=== PATIENT | female | born 1985 | race Caucasian/White ===

== ENCOUNTER 2018-04-29 06:08 | Inpatient (IN) | payer MEDICAID ==
[2018-04-29] VITALS (33 sets, daily range): BP systolic 126–189; BP diastolic 72–103; Ht 157.5 cm; Wt 65.8 kg
[~2018-04-29] VITALS: Ht 157.5 cm; Wt 65.8 kg
--- NOTE | ~2018-04-29 | HP ---
PATIENT: VANIA ORTIZ I MEDICAL RECORD: [id number] ACCOUNT: [id number] LOCATION:[id number] : 85 ADMISSION DATE: 04/29/18 HISTORY AND PHYSICAL EXAMINATION DATE OF ADMISSION: 04/29/2018 HISTORY OF PRESENT ILLNESS: The patient was admitted via the Emergency Room with chief complaint of having a precipitous vaginal delivery of a likely term and bleeding while at a [employer]. PAST MEDICAL HISTORY: Significant for; 1. Polysubstance abuse. 2. Depression. 3. Recurrent UTIs. 4. Poor dentition. PAST SURGICAL HISTORY: The patient denies. FAMILY HISTORY: The patient reports no significant family history. SOCIAL HISTORY: The patient reports a social history significant for user of tobacco, methamphetamine, marijuana, and alcohol. PHYSICAL EXAMINATION: VITAL SIGNS: Stable. The patient was afebrile. LUNGS: Clear to auscultation. CARDIOVASCULAR: Regular rate and rhythm. PELVIC: Uterus was appropriately sized for the immediate state. EXTREMITIES: Lower extremities were free of Homans sign or erythema. VAGINAL EXAMINATION: Minimal bleeding was noted on initial examination with no significant tears. ASSESSMENT AND PLAN: 1. Precipitous delivery outside of the hospital. 2. Polysubstance abuse. 3. Depression. PLAN: The patient was admitted, at that time started on pain medicine and IV fluids. The patient was noted an admit hemoglobin to be 6.9. Orders were given to transfuse 2-3 units of packed red blood cells. financial services education consultant were contacted due to the patient's polysubstance abuse. Attempts were made to obtain all of the patient's records. The patient had been diagnosed with chlamydia during the and was treated with Zithromax. TRANSINT:[id number] Voice Confirmation ID: [id number] DOCUMENT ID: [id number] HISTORY AND PHYSICAL [id number] ALEXANDRU ORTIZBEJASWINDER Delgado KRISSY DOMINGUEZ MD CC: [id number] DICTATION DATE: 06/23/18737 PARADICHLOROBENZENE TENDER: 06/23/18 0941 DIS IN 04/30/18 [place] [id number]
--- NOTE | ~2018-04-29 | DS ---
PATIENT:VANIA ORTIZ I :85 MEDICAL RECORD: [id number] DISCHARGE SUMMARY ADMISSION DATE: 04/29/18 DISCHARGE DATE: 04/30/18 HISTORY: The patient arrived at the Emergency Room via ambulance after having a precipitous delivery while at a green party. The patient reported some bleeding and that the placenta had delivered en route without complication. The patient was noted to have an extensive history of polysubstance abuse. The patient had a past medical history significant for: 1. Polysubstance abuse. 2. Depression. 3. Recurrent UTIs. 4. Poor dentition. The patient reported no previous surgeries. The patient reported being a smoker, user of methamphetamine and marijuana. PHYSICAL EXAMINATION: GENERAL: Upon initial examination, the patient was lying in bed comfortably upon admit to labor and delivery. The patient at that time with minimal lochia. VITAL SIGNS: Vital signs at that time were stable. LUNGS: Clear to auscultation. CARDIOVASCULAR: Regular rate and rhythm. PELVIC: Uterus was infraumbilical. EXTREMITIES: Lower extremities were free of Homans sign. ASSESSMENT AND PLAN: At that time; 1. Precipitous delivery outside of hospital. 2. Polysubstance abuse. 3. Depression. HOSPITAL COURSE: The patient was admitted at that time and started on pain medicine and IV fluids. Admit hemoglobin was found to be 6.9. The patient was started on at that time transfusion of packed red blood cells. Risk and benefit of blood transfusion was explained to the patient. The patient voiced understanding and consent. The patient had been diagnosed with chlamydia during the . The patient was retreated with Zithromax. Overnight on hospital day #1, the patient's hemoglobin only kassie a slight amount, although the patient had no signs of any active bleeding, no evidence of intra-abdominal bleeding. A CT scan was obtained to evaluate for uterine rupture or intra-abdominal bleeding. CT scan was found to be negative. No evidence of any intra-abdominal bleeding. My suspicion at that time as the patient just underestimated blood loss at the time of delivery and the patient was given another unit of packed red cells. This time met with appropriate rise in her hemoglobin. During the stay, the patient continued to leave the unit sometimes for more than an hour at a time and returning with elevated blood pressures. It was suspected at that time that she was using methamphetamine and coming back to the room. It was suspected initially the patient had -induced hypertension and was started on labetalol 200 mg t.i.d. Despite multiple attempts of counseling the patient and informing her the importance of staying on the unit, at one point the patient left the unit and was gone for over 2 hours, at which point, the patient was discharged AMA. The patient returned later in the afternoon and signed AMA papers. The patient was given discharge instructions and advised to follow up as an outpatient. DISCHARGE SUMMARY REPORT [id number] VANIA ORTIZ I TRANSINT:[id number] Voice Confirmation ID: [id number] DOCUMENT ID: [id number] KRISSY DOMINGUEZ MD at 1304 CC: [id number] DICTATION DATE: 06/16/1843 COMMERCIAL ELECTRICIAN: 06/16/18 0803 DIS IN 04/30/18 [place] [id number] [place] [address]
[~2018-04-29 06:08] MED LIST: FERROUS; IBUPROFEN600 MG PO; PERCOCET 5-3251 TAB PO; PROCARDIA XL PO
[2018-04-29 07:20] LABS: RBC 2.94 10x6/uL (4.00-5.40); WBC 21.8 10x3/uL (4.8-10.8)
[2018-04-29 07:21] LABS: HEMATOCRIT 21.4 % (36.0-48.0); HEMOGLOBIN 6.4 g/dL (12-16); MCH 21.8 pg (26.0-34.0); MCHC 29.9 g/dL (31.0-37.0); MCV 72.8 fL (80.0-100.0); MEAN PLATELET VOLUME 10.5 fL (7.4-10.4); RDW 17.8 % (11.5-14.5)
[2018-04-29 10:03] LABS: UDS - AMPHET POSITIVE QUAL (NEGATIVE); UDS - BARB NEGATIVE QUAL (NEGATIVE); UDS - BENZO NEGATIVE QUAL (NEGATIVE); UDS - COCAINE NEGATIVE QUAL (NEGATIVE); UDS - OPIATE NEGATIVE QUAL (NEGATIVE); UDS - PCP NEGATIVE QUAL (NEGATIVE); UDS - THC NEGATIVE QUAL (NEGATIVE)
[2018-04-30 02:35] VITALS: BP 118/72
[2018-04-30 05:43] LABS: BASOPHILS 0.2 % (0-2); EOSINOPHILS 2.8 % (0-7); IMMATURE GRANULOCYTES 2.2 % (0-5); LYMPHOCYTES 15.8 % (15-50); MCH 24.4 pg (26.0-34.0); MCHC 31.6 g/dL (31.0-37.0); MEAN PLATELET VOLUME 11.2 fL (7.4-10.4); MONOCYTES 4.9 % (2-11); NEUTROPHILS 74.1 % (40-80)
[2018-04-30 05:54] LABS: WBC 13.4 10x3/uL (4.8-10.8)
[2018-04-30 05:55] LABS: HEMATOCRIT 19.3 % (36.0-48.0); HEMOGLOBIN 6.1 g/dL (12-16); MCV 77.2 fL (80.0-100.0); PLATELET COUNT 150 10x3/uL (130-400)
[2018-04-30 06:02] VITALS: BP 129/76
[2018-04-30 07:43] VITALS: BP 134/74
[2018-04-30 08:09] LABS: ALBUMIN 1.6 g/dL (3.4-5.0); ALKALINE PHOSPHATASE 161 U/L (46-116); ALT (SGPT) 11 U/L (10-68); CALC OSMOLALITY 273 mosm/kg (275-300); CHLORIDE - SERUM 107 mmol/L (98-107); CREATININE - SERUM 0.7 mg/dL (0.6-1.3); GLUCOSE 87 mg/dL (74-106); PROTEIN - SERUM 4.5 g/dL (6.4-8.2); SODIUM 138 mmol/L (136-145); UREA NITROGEN 9 mg/dL (7-18); eGFR NON AFRICAN AMERICAN > 90 mL/min (90-120)
[2018-04-30 08:36] LABS: EOSINOPHILS 1 % (0-7); LYMPHOCYTES 7 % (15-50); MONOCYTES 2 % (2-11); NEUTROPHILS 87 % (40-80)
[2018-04-30 08:37] LABS: POLYCHROMASIA OCC
[2018-04-30 08:40] LABS: BILIRUBIN - DIRECT 0.05 mg/dL (0.00-0.30); PLATELET ESTIMATE NORMAL; URIC ACID 4.8 mg/dL (2.6-7.2)
[2018-04-30 08:46] LABS: APPEARANCE HAZY (CLEAR); BILIRUBIN NEGATIVE (NEGATIVE); COLOR YELLOW (YELLOW); GLUCOSE NEGATIVE (NEGATIVE); KETONE NEGATIVE (NEGATIVE); NITRITE NEGATIVE (NEGATIVE); PROTEIN 1+ mg/dL (NEGATIVE); UROBILINOGEN NORMAL (NORMAL)
[2018-04-30 08:47] LABS: WHITE CELLS - URINE 0-5 /hpf (0-5)
[2018-04-30 08:48] LABS: BACTERIA MANY /hpf (NONE SEEN)
[2018-04-30 08:49] LABS: AMORPHOUS SEDIMENT >1+ /lpf (NONE SEEN)
[2018-04-30 18:00] LABS: BASOPHILS 0.3 % (0-2); EOSINOPHILS 3.3 % (0-7); LYMPHOCYTES 13.9 % (15-50); MCH 25.3 pg (26.0-34.0); MCHC 31.6 g/dL (31.0-37.0); MEAN PLATELET VOLUME 10.6 fL (7.4-10.4); MONOCYTES 5.2 % (2-11); NEUTROPHILS 74.3 % (40-80); RDW 18.8 % (11.5-14.5)
[2018-04-30 18:06] LABS: HEMATOCRIT 30.1 % (36.0-48.0); HEMOGLOBIN 9.5 g/dL (12-16); MCV 80.1 fL (80.0-100.0); PLATELET COUNT 182 10x3/uL (130-400); RBC 3.76 10x6/uL (4.00-5.40); WBC 17.8 10x3/uL (4.8-10.8)
[2018-05-01 06:16] LABS: RAPID PLASMA REAGIN Non Reactive (Non Reactive)
== END 2018-04-30 20:00 | disposition home or self-care (01) | DRG 775 ==
LOC: D.ER 06:08 → D.LD 06:15 → D.ER 06:21 → D.LD 04-30 20:00
PROVIDERS: Obstetrics & Gynecology
DX: O99.324 Drug use complicating childbirth (principal); Z37.0 Single live birth; F19.90 Other psychoactive substance use, unspecified, uncomplicated; O13.4 Gestational [pregnancy-induced] hypertension without significant proteinuria, complicating childbirth; O62.3 Precipitate labor